=== PATIENT | female | born 1960 | race Caucasian/White ===

== ENCOUNTER 2020-02-27 10:33 | Day surgery (SDC) | payer OTHER ==
[2020-02-25 10:21] VITALS: BMI 30.7
[~2020-02-27 10:33] MED LIST: LACTATED RINGERS 1,000 ML IV SCH
[2020-02-27 11:03] VITALS: RESP 16; TEMP 97.5
[2020-02-27] MEDS ORDERED: LIDOCAINE 1% (10MG/ML) FOR IV START INTRADERMA ONE (11:17)
[2020-02-27] MEDS ORDERED: PROPOFOL 10 MG/ML 20 ML VIAL IV ONE (11:17)
[2020-02-27] MEDS ORDERED: MIDAZOLAM 2 MG/2 ML VIAL ONE (11:17)
--- NOTE | 2020-02-27 11:36 | P.PCN ---
Date of Procedure: 02/27/20 Procedure(s) Performed: BRIEF HISTORY: Patient is a -59 year-old pleasant white female scheduled for an elective colonoscopy as a part of the lesion of prior history of colon polyps. Her last colonoscopy was 5 years ago. PROCEDURE PERFORMED: Colonoscopy with snare polypectomy . PREOPERATIVE DIAGNOSIS: history of colon polyps IV sedation per Anesthesia. PROCEDURE: After informed consent was obtained, the patient, was brought into the endoscopy unit. IV sedation was administered by Anesthesia under continuous monitoring. Digital rectal examination was normal. Initially the Olympus CF-160 flexible video colonoscope was then inserted in the rectum, gradually advanced into the cecum without any difficulty. Careful examination was performed as the scope was gradually being withdrawn. Ileocecal valve and the appendiceal orifice were visualized and appeared normal. Prep was excellent. in the base of the cecum was a 7 mm flat polyp removed by snare polypectomy. In the ascending colon there was a 3 mm polyp removed by snare polypectomy. Mucosa of the cecum, ascending colon, transverse colon, descending colon, sigmoid colon, and rectum appeared normal. Retroflexion was performed in the rectum and no lesions were seen. The patient tolerated the procedure well. IMPRESSION: 3 mm ascending colon polyp status post polypectomy 7 mm cecal polyp status post polypectomy RECOMMENDATIONS: Findings of this examination were discussed with the patient as well as a family. She was advised to follow with the biopsy results. If the biopsy reveals adenoma she can have a repeat colonoscopy in 5 years
[2020-02-27 11:53] VITALS: BP 137/87; PULSE 77
== END 2020-02-27 12:10 | disposition home or self-care (01) ==
LOC: ORWHC2ENDO 10:33
PROVIDERS: ATTEND Internal Medicine Gastroenterology
DX: Z12.11 Encounter for screening for malignant neoplasm of colon (principal); D12.0 Benign neoplasm of cecum; D12.2 Benign neoplasm of ascending colon; F17.200 Nicotine dependence, unspecified, uncomplicated; Z86.010 Personal history of colon polyps; Z79.891 Long term (current) use of opiate analgesic; Z79.899 Other long term (current) drug therapy
CPT/HCPCS: 88305; 45385; J2250; J2704

== ENCOUNTER 2024-09-05 09:00 | Day surgery (SDC) | payer OTHER ==
[2024-09-02 16:04] VITALS: BMI 23.7
[2024-09-05] MEDS: IV FLUID CONTINUATION 1,000 ML IV ONE (09:43)
[2024-09-05] MEDS ORDERED: SODIUM CHLORIDE 0.9% 1,000 ML IV SCH (09:45)
[2024-09-05 09:47] VITALS: BP 116/87; PULSE 64; RESP 16; TEMP 97.3
== END 2024-09-05 11:51 | disposition home or self-care (01) ==
LOC: CATHCVL 09:00
PROVIDERS: ATTEND Internal Medicine Interventional Cardiology
DX: I47.10 Supraventricular tachycardia, unspecified (principal); Z53.29 Procedure and treatment not carried out because of patient's decision for other reasons; Q21.10 Atrial septal defect, unspecified; E78.5 Hyperlipidemia, unspecified; Z82.49 Family history of ischemic heart disease and other diseases of the circulatory system; I08.0 Rheumatic disorders of both mitral and aortic valves; R00.2 Palpitations; F17.210 Nicotine dependence, cigarettes, uncomplicated; Z79.82 Long term (current) use of aspirin; Z79.899 Other long term (current) drug therapy; Z88.6 Allergy status to analgesic agent

== ENCOUNTER → 2024-09-12 | Day surgery (SDC) | payer OTHER ==
[~2024-09-12] MED LIST changes: +BENZOCAINE SPRAY 1 EACH MM PRN; -LACTATED RINGERS 1,000 ML IV SCH; +MIDAZOLAM 2 MG/2 ML VIAL IV PRN; +fentaNYL (PF) 50 MCG/ML 2 ML AMP IVP PRN
[2024-09-12] MEDS: IV FLUID CONTINUATION 1,000 ML IV ONE (06:38)
[2024-09-12 06:45] VITALS: BP 122/77; PULSE 58; RESP 14; TEMP 97.8
[2024-09-12] MEDS: BENZOCAINE SPRAY 1 EACH MUCOUS MEM ONE (07:31)
[2024-09-12] MEDS: fentaNYL (PF) 50 MCG/1 ML VIAL IVP ONE (07:35)
[2024-09-12] MEDS: MIDAZOLAM 2 MG/2 ML VIAL IVP ONE ×2 (07:36→07:44)
--- NOTE | 2024-09-12 08:05 | P.PCN ---
Date of Procedure: 09/12/24 Operative Findings: TRANSESOPHAGEAL ECHOCARDIOGRAM HANDLE LATHE OPERATOR: TIARRA BAUM MD, RPVI INDICATION: Atrial septal defect SEDATION: Conscious sedation COMPLICATION: None LEVEL OF SEDATION Moderate with sedation length of 18 minutes PROCEDURE DESCRIPTION: After obtaining an informed consent, the patient was brought to transesophageal echocardiogram room. Pulse oximetry and heart monitors were attached to the patient. The patient throat was sprayed using lidocaine. The patient was turned into left lateral position. After that a bite guard was placed. After an appropriate conscious sedation was initiated, the transesophageal echocardiogram was advanced through a bite guard into the mid esophagus. A 2-D echocardiogram images, color Doppler images, continuous wave images, pulse-wave images, of various cardiac structure were performed. After that the transesophageal echocardiogram probe was advanced into the stomach and fixed to obtain transgastric view was. The probe was brought into the mid esophagus. Inter-atrial septum was interrogated using 2D images, color Doppler images, and then contrast study. After that transesophageal echocardiogram was withdrawn out and upon withdrawing the descending thoracic aorta all the way up to the arch was evaluated. CONCLUSION: 1. 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 Dilated right atrium and right ventricle secondary to [id number] shunt 3. Normal LV systolic function 4. Normal intracardiac valves 5. Intact left atrial appendage 6. No pericardial effusion
== END ==
LOC: CATHCVL 06:01
PROVIDERS: ATTEND Internal Medicine Interventional Cardiology
DX: I47.10 Supraventricular tachycardia, unspecified (principal); I38 Endocarditis, valve unspecified; E78.5 Hyperlipidemia, unspecified; F17.200 Nicotine dependence, unspecified, uncomplicated; Q21.10 Atrial septal defect, unspecified; Z82.49 Family history of ischemic heart disease and other diseases of the circulatory system; Z79.82 Long term (current) use of aspirin; Z88.6 Allergy status to analgesic agent; Z79.899 Other long term (current) drug therapy
CPT/HCPCS: 93312; 93320; 93325; 99152; J2250; J3010